=== PATIENT | male | born 1960 | race Caucasian/White ===

== ENCOUNTER 2024-03-25 12:45 | Emergency (ER) | payer MEDICAID ==
[2024-03-25 13:18] LABS: BASOPHILS PERCENT AUTO 0.5 % (0.2-1.2); EOSINOPHILS ABSOLUTE AUTO 0.1 x10^3/uL (0.0-0.5); EOSINOPHILS PERCENT AUTO 1.8 % (0.0-4.0); HEMATOCRIT 40.8 % (40.0-52.0); HEMOGLOBIN 13.4 g/dL (14.0-18.0); IMMATURE GRAN ABSOLUTE AUTO 0.01 x10^3/uL (0.00-0.07); LYMPHOCYTES ABSOLUTE AUTO 1.2 x10^3/uL (1.0-4.8); LYMPHOCYTES PERCENT AUTO 30.7 % (25.0-50.0); MEAN CORPUSCULAR HEMOGLOBIN 27.7 pg (26.0-32.0); MEAN CORPUSCULAR HGB CONC 32.8 g/dL (32.0-36.0); MEAN CORPUSCULAR VOLUME 84.3 fL (78.0-93.0); MONOCYTES ABSOLUTE AUTO 0.6 x10^3/uL (0.0-0.8); MONOCYTES PERCENT AUTO 14.7 % (2.0-11.0); NEUTROPHILS ABSOLUTE AUTO 2.1 x10^3/uL (1.8-7.7); PLATELET COUNT,PLT 150 x10^3/uL (130-400); RED BLOOD CELL COUNT 4.84 x10^6/uL (4.5-6.0); WHITE BLOOD CELL COUNT,WBC 3.9 x10^3/uL (4.0-10.0)
[2024-03-25 13:25] LABS: HCO3 VENOUS,POC 27 mmol/L (22-29); O2 SATURATION VENOUS,POC 70 %; PCO2 VENOUS,POC 45 mmHg (41-51); PH VENOUS,POC 7.39 pH (7.32-7.43); PO2 VENOUS,POC 37 mmHg
[2024-03-25 13:48] LABS: A/G RATIO 1.16; ALANINE AMINOTRANSFERASE,ALT 35 U/L (16-63); ALBUMIN 3.6 g/dL (3.4-5.0); ALKALINE PHOSPHATASE 131 U/L (46-116); ASPARTATE AMNIOTRANSFERASE,AST 22 U/L (15-37); BILIRUBIN TOTAL 0.6 mg/dL (0.2-1.0); BLOOD UREA NITROGEN,BUN 12 mg/dL (7-18); C-REACTIVE PROTEIN 1.17 mg/dL (<=0.50); CARBON DIOXIDE,CO2 27 mmol/L (21-32); CHLORIDE,CL 105 mmol/L (98-107); CREATININE 0.9 mg/dL (0.70-1.30); GLUCOSE RANDOM 148 mg/dL (70-99); POTASSIUM,K 4.1 mmol/L (3.5-5.1); PROTEIN TOTAL,TP 6.7 g/dL (6.4-8.2); SODIUM,NA 142 mmol/L (136-145); TSH ULTRASENSITIVE 0.549 uIU/mL (0.358-3.74)
[2024-03-25 13:49] LABS: ANION GAP 14.1 mmol/L (5-15); ESTIMATED GFR 97 mL/min (>=60)
== END 2024-03-25 14:41 | disposition home or self-care (01) ==
LOC: VM.ED 12:45
DX: J44.1 Chronic obstructive pulmonary disease with (acute) exacerbation (principal); I10 Essential (primary) hypertension; E11.40 Type 2 diabetes mellitus with diabetic neuropathy, unspecified; I25.10 Atherosclerotic heart disease of native coronary artery without angina pectoris; Z86.16 Personal history of COVID-19; Z79.899 Other long term (current) drug therapy; Z95.1 Presence of aortocoronary bypass graft
CPT/HCPCS: 36415; 71045; 80053; 82803; 84443; 84484; 85025; 86140; 93005; 99285